=== PATIENT | female | born 1960 | race Caucasian/White ===

== ENCOUNTER 2016-07-05 14:31 | Emergency (ER) | payer BC ==
[2016-07-05 14:50] VITALS: BP 170/99
[2016-07-05] MEDS ORDERED: predniSONE TAB* 20 MG PO ONE (16:00)
[2016-07-05] MEDS ORDERED: HYDROcodone/ACETAMIN 5-325 MG* 1 TAB PO ONE (16:00)
--- NOTE | 2016-07-05 18:10 | UC ---
Ubaldo Bentley Janilya, scribed for Kristin Gonzales DO on 07/05/16 at 1500 . Upper Extremity HPI - HPI Summary HPI Summary: Patient is a 55 y/o female who came in to [facility] presenting w/ a gradual onset of constant R shoulder pain starting about a week ago. Severity is rated 8/10. Pt states that she has been carrying heavy boxes for the past two weeks. Her R arm started to feel sore. However, in addition, she painted her ceiling two days ago , which aggravated her pain. Before sleep last night, her R arm was sore, so she took couple dosages of Tylenol. However, the severe pain of the R arm woke her up at 0300 this morning. She could not lie down, get comfortable, or go back to sleep. She took 3 dosages of Advil and 2 dosages of Tylenol at that time. The pain is described as "burning and throbbing pain" throughout her R arm and R shoulder. The pain radiates to the R side of neck and jaw when she turns her head. Getting dressed or getting comfortable has been difficult. At 0700 this morning, she took 2 dosages of Advil and 2 dosages of Tylenol. At 1200 , she took 4 dosages of Advil. None of the pain medication alleviated her pain. Pt states nothing makes the pain better, even with a sling and use of ice. Manual bp is 120/85. - History of Current Complaint Chief Complaint: UCUpperExtremity Stated Complaint: SHOULDER INJURY Hx Obtained From: Patient, Family/Paper Sealer Onset/Duration: Gradual Onset, Lasting Days, Still Present Severity Initially: Moderate Severity Currently: Moderate Pain Intensity: 8 Pain Scale Used: 0-10 Numeric Location Of Pain: Is Discrete @ - rt shoulder and upper arm Character: Throbbing, Burning Aggravating Factor(s): Nothing Alleviating Factor(s): Nothing Associated Signs And Symptoms: Positive: Negative - Allergies/Home Medications Allergies/Adverse Reactions: Allergies Allergy/AdvReac Type Severity Reaction Status Date / Time Sulfites Allergy Airway Verified 07/05/16 14:42 Obstruction Home Medications: Home Medications Acetaminophen [Tylenol] 650 mg 07/05/16 [History] Fexofenadine (NF) [Cristy (NF)] 07/05/16 [History] Fluticasone-Salmeterol 100-50* [Advair Diskus 100-50*] 07/05/16 [History] Ibuprofen [Advil] 400 mg 07/05/16 [History] PMH/Surg Hx/FS Hx/Imm Hx Previously Healthy: Yes Endocrine History Of: Denies: Thyroid Disease, Hyperthyroidism, Hypothyroidism Cardiovascular History Of: Denies: Hypertension Respiratory History Of: Reports: Asthma - seasonal - Surgical History Surgical History: Yes Surgery Procedure, Year, and Place: gall bladder. x2. tonsillectomy. carpel tunnel repair - bilateral - Family History Known Family History: Positive: Hypertension - mother Negative: Cardiac Disease, Diabetes, Blood Disorder - Social History Occupation: Employed Full-time Lives: With Family Alcohol Use: None Substance Use Type: None Smoking Status (MU): Never Smoked Tobacco Review of Systems Constitutional: Negative Skin: Negative Eyes: Negative ENT: Negative Respiratory: Negative Cardiovascular: Negative Gastrointestinal: Negative Genitourinary: Negative Motor: Negative Neurovascular: Negative Musculoskeletal: Other: - R shoulder pain Neurological: Negative Psychological: Negative All Other Systems Reviewed And Are Negative: Yes Physical Exam Triage Information Reviewed: Yes Appearance: Well-Appearing, Well-Nourished, Pain Distress Vital Signs: Initial Vital Signs Temp 98.8 F 07/05/16 14:44 Pulse 82 07/05/16 14:44 Resp 18 07/05/16 14:44 BP 170/99 07/05/16 14:44 Pulse Ox 97 07/05/16 14:44 Vital Signs Reviewed: Yes Eyes: Positive: Conjunctiva Clear. Negative: Discharge ENT: Positive: Hearing grossly normal. Negative: Muffled/hoarse voice Neck exam: Normal Neck: Positive: Supple Respiratory: Positive: Lungs clear, Normal breath sounds, No respiratory distress, No accessory muscle use Cardiovascular: Positive: RRR, No Murmur Musculoskeletal: Positive: Other: - Exam limited due to patient's pain distress. Normal inspection. Palpation reveals diffuse tenderness over the shoulder capsule, brachium, trapezius on the right. Active ROM, limited to 10 degrees in flexion, abduction, and extension. Internal /external ROM could not be tested due to pain. Passive ROM restricted by what appeared to be a physiological barrier at 30 degree flexion and 40 degrees abduction. Extension restricted at 20 degrees. Internal/external rotation elicited too much pain to continue testing. No tenderness to palpation to paraspinal muscle of neck. Spurlings' neg bilaterally. ROM of neck is within normal limits. Neurological: Positive: Alert, Muscle Tone Normal Psychological Exam: Normal Psychological: Positive: Age Appropriate Behavior Skin Exam: Normal - warm, dry, normal color Upper Extremity Course/Dx - Differential Dx/Diagnosis Differential Diagnosis/HQI/PQRI: Arthritis, Bursitis, Sprain, Other - adhesive capsulitis, rotator cuff tendonitis, biceps tendonitis Provider Diagnoses: shoulder pain Discharge - Discharge Plan Condition: Stable Disposition: HOME Prescriptions: HYDROcodone/ACETAMIN 5-325 MG* [[place] 5-325 TAB*] 1 tab PO Q6H PRN #14 tab MDD 4 TABS PRN Reason: Pain predniSONE TAB* [Deltasone TAB*] 40 mg PO DAILY #8 tab Patient Education Materials: Adhesive Capsulitis (ED), Shoulder Pain (ED) Referrals: Raheem Kaufman MD [Medical Doctor] - 2 Weeks Calvin Leigh MD [Medical Doctor] - (Follow up in 5-8 days.) Additional Instructions: THE SEVERE PAIN IN YOUR SHOULDER LIMITS OUR ABILITY TO EXAM IT AT THIS TIME. DURING YOUR PHYSICAL EXAM, WE NOTED SEVERE RESTRICTION IN YOUR RANGE OF MOTION. THIS MAKE US SUSPICIOUS OF A CONDITION CALLED ADHESIVE CAPSULITIS, ALSO KNOWN FROZEN SHOULDER. SO WE HAVE INCLUDED EDUCATIONAL MATERIAL ON THIS CONDITION. ORAL NARCOTIC MEDICATION: You have been given a prescription for pain control. This medication is a narcotic. It's best taken with food, as nausea can result if taken on an empty stomach. Don't operate machinery or drive within six hours of taking this medication. Do not combine this medicine with alcohol, or with any medication which can cause sedation (such as cold tablets or sleeping pills) unless you get permission from the physician. Narcotics tend to cause constipation. If possible, drink plenty of fluids and eat a diet high in fiber and fruits. CORTICOSTEROID MEDICATION: You have been given a medicine of the cortisone class. This medication is used to control inflammation or allergy. It is usually only given for a short period of time, until the acute process subsides. There are usually no side effects from short-term use of cortisone-like medications. Some persons feel an increased sense of well-being and are not sleepy at bedtime. Long-term use of cortisone medications is best avoided, unless required for a severe condition. If your condition does not remit, or relapses after the course of corticosteroid medication, you should consult your physician. Contact the physician if you develop lightheadedness, black or tarry stools , swelling of the legs, or significant rapid change in weight. ALTERNATE HOT AND COLD ONE RIGHT AFTER THE OTHER FOR 10-20 MINUTES EACH. ICE PACKS: Apply ice packs frequently against the painful area. Many different schedules are recommended, such as "20 minutes on, 20 minutes off" or "one hour ice, two hours rest." If you need to work, you may need to go longer between ice treatments. You should plan to have the area ice packed AT LEAST one fourth of the time. The ice should be applied over the wrap, tape, or splint, or over a layer of cloth -- not directly against the skin. Some ice bags have a built-in cloth and can be put directly on the skin. WARM PACKS: Apply gentle heat (such as a heating pad or hot water bottle) for about 20 to 30 minutes about every two hours -- at least four times daily. Warmth and elevation will help you make a more rapid recovery, and will ease the pain considerably. Do not use HOT heat, and never apply heat for longer than 30 minutes. The continuous heat can invisibly damage skin and muscles -- even when no burn is seen on the surface. Damaged muscles can make you MORE sore. YOU WOULD LIKELY BENEFIT FROM OSTEOPATHIC TREATMENT. WE RECOMMEND THAT YOU FIND AN OSTEOPATHIC PHYSICIAN IN YOUR AREA WHO FOCUSES EXCLUSIVELY ON OSTEOPATHIC MANIPULATIVE MEDICINE WITH EXPERTISE IN MYOFACIAL, LYMPHATIC, VISCERAL AND INTEROSSEOUS WORK The documentation as recorded by the Ubaldo rushing Janilya accurately reflects the service I personally performed and the decisions made by , Kristin Gonzales DO.
== END 2016-07-05 16:34 | disposition home or self-care (01) ==
LOC: UCEAST 14:31
DX: M25.511 Pain in right shoulder (principal); J45.909 Unspecified asthma, uncomplicated
CPT/HCPCS: 99202; G0463; J7512